=== PATIENT | male | born 1955 | race African-American/Black ===

== ENCOUNTER 2016-12-22 17:13 | Emergency (ER) | payer MEDICAID ==
[~2016-12-22] VITALS: Ht 175.3 cm; Wt 75.0 kg
[~2016-12-22 17:13] MED LIST: AMBI5TAB PO; ASPI81TA82 PO; CARV6.252 PO; CIPR500T4 PO; GUAI600 PO; HCTZ25 PO; LISI20 PO; LORA.5 PO; POTA20IN3 PO
[2016-12-22 17:15] VITALS: BP 141/88; PULSE 94; RESP 16; TEMP 99.1; O2SAT 97
[2016-12-22] MEDS ORDERED: POTA10TA2 PO (19:38)
[2016-12-22] MEDS ORDERED: LISI2.5T3 PO (19:38)
[2016-12-22] MEDS ORDERED: FURO40TA PO (19:38)
[2016-12-22] MEDS ORDERED: ASPI81TA23 PO (19:38)
[2016-12-22 19:40] VITALS: BP 147/94; PULSE 67; RESP 16; O2SAT 100
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
== END 2016-12-22 21:01 | disposition home or self-care (01) ==
LOC: NEPD 17:13
DX: R05 Cough (principal); R06.02 Shortness of breath; J02.9 Acute pharyngitis, unspecified; R09.81 Nasal congestion; M19.90 Unspecified osteoarthritis, unspecified site; F41.9 Anxiety disorder, unspecified; K21.9 Gastro-esophageal reflux disease without esophagitis; I10 Essential (primary) hypertension; Z77.098 Contact with and (suspected) exposure to other hazardous, chiefly nonmedicinal, chemicals
CPT/HCPCS: 71020; 99283